=== PATIENT | female | born 1940 | race Caucasian/White ===

== ENCOUNTER → 2017-12-18 | Outpatient (CLI) | payer OTHER, BC ==
[~2017-12-18] MED LIST: AMLO2.5T PO; AMT50 PO; ASPI81TA28 PO; ATOR10TA82 PO; BISO10TA14 PO; CALC500C70 PO; HYDR-5688 PO; MULT-506 PO; OMEG10007 PO; RALO60TA30 PO; TRAMTAB5 PO
--- NOTE | 2017-12-18 15:49 | DIAGNOSTIC IMAGING REPORT ---
CHEST 2 VIEWS ROUTINE CLINICAL HISTORY: PRE OP TESTING, WENT TO [facility], SEND TO [facility] COMPARISON STUDY: No previous studies for comparison. FINDINGS: The bones soft tissues and hemidiaphragms are normal. The cardiomediastinal silhouette is normal. The lungs are clear. The pulmonary vasculature is normal. IMPRESSION: Negative chest. The above report was generated using voice recognition software. It may contain grammatical, syntax or spelling errors. Electronically signed by: Chetan Velazquez M.D. 12/18/2017 3:47 PM Dictated Date/Time: 12/18/2017 3:42 PM
[2017-12-18 15:50] LABS: BASO % 0.1 %; BASO ABS # 0.01 K/uL (0-0.2); EOS % 2.2 %; EOS ABS # 0.17 K/uL (0-0.5); HEMATOCRIT 38.5 % (37-47); HEMOGLOBIN 12.8 g/dL (12.0-16.0); IG# 0.01 K/uL (0.00-0.02); LYMPH % 25.6 %; LYMPH ABS # 2.01 K/uL (1.2-3.4); MEAN CORPUSCULAR HEMOGLOBIN 27.6 pg (25-34); MEAN CORPUSCULAR HGB CONC 33.2 g/dl (32-36); MEAN PLATELET VOLUME 8.8 fL (7.4-10.4); MONO % 8.2 %; MONO ABS # 0.64 K/uL (0.11-0.59); NEUT % 63.8 %; NEUT ABS # 5.01 K/uL (1.4-6.5); PLATELET COUNT 288 K/uL (130-400); RED CELL DISTRIBUTION WIDTH CV 14.6 % (11.5-14.5); RED CELL DISTRIBUTION WIDTH SD 43.9 fL (36.4-46.3); WHITE BLOOD COUNT 7.85 K/uL (4.8-10.8)
[2017-12-18 15:57] LABS: PTT PATIENT 22.7 SECONDS (21.0-31.0)
[2017-12-18 16:23] LABS: ALBUMIN 3.4 gm/dl (3.4-5.0); BLOOD UREA NITROGEN 17 mg/dl (7-18); CALCIUM 8.7 mg/dl (8.5-10.1); CARBON DIOXIDE 29 mmol/L (21-32); CREATININE 0.83 mg/dl (0.60-1.20); GLUCOSE 124 mg/dl (70-99); POTASSIUM 3.7 mmol/L (3.5-5.1); SODIUM 140 mmol/L (136-145)
[2017-12-19 07:25] LABS: HEMOGLOBIN A1C 5.8 % (4.5-5.6)
== END | disposition home or self-care (01) ==
LOC: C.LAB 15:02
PROVIDERS: ATTEND Orthopaedic Surgery
DX: Z01.812 Encounter for preprocedural laboratory examination (principal); Z01.811 Encounter for preprocedural respiratory examination; Z01.810 Encounter for preprocedural cardiovascular examination

== ENCOUNTER 2017-12-23 09:34 | Inpatient (IN) | payer OTHER, BC ==
[2017-12-21 12:50] VITALS: BMI 28.0
[2017-12-23] VITALS (9 sets, daily range): BP systolic 101–149; BP diastolic 63–77; PULSE 76–84; TEMP 36.4–37; O2SAT 92–96; Ht 160 cm; Wt 72.7 kg
[~2017-12-23] VITALS: Ht 160 cm; Wt 72.7 kg
--- NOTE | 2017-12-23 08:02 | History and Physical ---
History & Physical Date December 23, 2017. 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 with valgus alignment bone the bone changes subchondral sclerosis cystic changes marginal osteophytes and sclerotic bone is been no response to conservative therapy History of Present Illness The patient is a 77 year old female with complaints of ongoing right knee pain that is been no response to conservative therapy with severe end-stage DJD valgus alignment [id number] changes she is failed attempts at conservative management including injections anti-inflammatories bracing relative rest Past Medical/Surgical History Patient has history of previous rotator cuff surgery and spine surgery Additional History Hepatic Disease: No Endocrine Disorder: No Kidney Disease: No Hypertension: Yes Heart Disease: Yes Bleeding Tendencies: No Infectious Diseases: No Allergies Coded Allergies: Gabapentin (Verified Allergy, Intermediate, PASSES OUT, 12/22/17) Penicillins (Verified Allergy, Intermediate, SWELL UP AND CAN'T BREATHE, ) Home Medications Scheduled Amitriptyline Hcl (Elavil), 25 MG PO HS Amlodipine (Norvasc), 2.5 MG PO DAILY Aspirin (Aspirin Ec), 81 MG PO DAILY Atorvastatin (Lipitor), 10 MG PO QPM Bisoprolol/Hctz (Ziac 10MG/6.25MG), TAB PO QAM Calcium/Vitamin D (Os-Jose 500 Plus D), 1 TAB PO QPM Fish Oil (Benjamin-3), 1 CAP PO BID Multivitamin (Multivitamin), 1 TAB PO QAM Raloxifene Hcl (Evista), 60 MG PO QAM Scheduled PRN Hydrocodone/Acetaminophen 5MG/325MG ([place] 5MG/325MG), 1 TABLET PO UD PRN for Pain Tramadol/Acetaminophen (Ultracet), 1 TAB PO UD PRN for Pain Physical Examination Skin: warm/dry, no rash Eyes: normal inspection, EOMI, sclerae normal ENT: normal ENT inspection, pharynx normal Head: normocephalic, atraumatic Neck: supple, no adenopathy, trachea midline Respiratory/Chest: lungs clear, normal breath sounds, no respiratory distress Cardiovascular: regular rate, rhythm, no edema, no murmur Abdomen / GI: normal bowel sounds, non tender Back: normal inspection Extremities: normal inspection, normal range of motion, + pertinent finding ( The exam includes pseudo-ligament ligamentous laxity medial joint line pain crepitation range of motion 0-120 moderate effusion crepitation of patellofemoral joint) Neurologic/Psych: no motor/sensory deficits, alert, normal reflexes, oriented x 3 Diagnosis Severe end-stage DJD with valgus alignment bone the bone changes eburnated bone osteophytes sclerosis Plan of Treatment Plans for total knee arthroplasty postoperative pain meds DVT prophylaxis antibiotics as necessary
--- NOTE | 2017-12-23 08:02 | History & Physical Bridge Note ---
H&P Re-Evaluation Bridge Note: I have examined the patient, reviewed the History & Physical and in the interval since the performance of the History & Physical I have noted the following changes of clinical significance: No changes noted
[~2017-12-23 09:34] MED LIST changes: +ACETAMINOPHEN 500 MG TAB PO SCH; +ATROPINE SULFATE 0.1 MG/ML 5ML SYR IV PRN; +BUPIVACAINE 0.25% 30 ML VIAL ONE; +BUPIVACAINE 0.5 % 5 MG/1 ML PF 10ML VIAL ONE; +CEFAZOLIN 1000MG IV PUSH 7.5 ML IV SCH; +CLINDAMYCIN 600 MG/54 ML D5W 54 ML IV SCH; +CeleBREX 200 MG CAP PO SCH; +DEXAMETHASONE 4 MG TAB PO SCH; +EpHEDrine SULFATE INJ 50 MG/ML AMP IV PRN; +FAMOTIDINE 20 MG TAB PO SCH; +FENTANYL CITRATE INJ 50 MCG/1 ML 2 ML VIAL IV PRN; +GABAPENTIN 300 MG CAP PO SCH; +HYDROmorphone INJ 1 MG/ML SYR IV PRN; +HYDROmorphone INJ 2 MG/ML SYR/VIAL IV PRN; +LABETALOL HCL IV 5 MG/ML 20ML IV PRN; +LACTATED RINGER'S 1000ML 1,000 ML IV SCH; +LACTATED RINGER'S 1000ML 500 ML IV SCH; +METOCLOPRAMIDE HCL 10 MG TAB PO SCH; +ONDANSETRON INJ 2 MG/ML 2 ML VIAL IV PRN; +PHENYLEPHRINE 100MCG/ML 5ML SYR IV PRN; +ROPIVACAINE 5MG/ML 30 ML 150 MG, BUPIVACAINE 0.5% MPF INJ 30 ML, EpINEphrine HCL INJ 0.... INFIL SCH; +[UNRECOGNIZED DRUG - REMARK] SCH; +[UNRECOGNIZED DRUG - REMARK] SCH
[2017-12-23] MEDS ORDERED: MIDAZOLAM HCL 1 MG/ML 2ML VIAL ONE (10:45)
[2017-12-23] MEDS ORDERED: FENTANYL CITRATE INJ 50 MCG/1 ML 2 ML VIAL ONE (10:45)
[2017-12-23] MEDS ORDERED: BACITRACIN 50000 UNIT VIAL ONE (11:53)
[2017-12-23] MEDS ORDERED: ORTHO JOINT ANESTHETIC ONE (11:53)
[2017-12-23] MEDS ORDERED: POVIDONE-IODINE OP SOLN 30 ML BTL ONE (11:53)
[2017-12-23] MEDS: TRANEXAMIC ACID INJ 1,000 MG x 2 Bags IV SCH ×4 (12:28→18:08)
--- NOTE | 2017-12-23 13:41 | [facility] Operative Report ---
Operative Report Operative Date December 23, 2017. Pre-Operative Diagnosis Right Knee Severe End-Stage Degenerative Joint Disease Post-Operative Diagnosis Right Knee Severe End-Stage Degenerative Joint Disease Procedure(s) Performed Right Total Knee Arthroplasty utilizing journey to non-block size 3 femur 3 tibia 10 Holly [address] Ackerman Handkerchief Sample Clerk Surgeon(s) POOL Tuttle Estimated Blood Loss 5 ml Findings Severe end-stage tricompartmental degenerative joint disease with high-grade valgus alignment [id number] eburnated bone subchondral cysts marginal osteophytes laterally and medially with a 10 of valgus alignment of the knee Specimens A. Right Knee Bone and Tissue Anesthesia Type MAC Spinal Regional Complication(s) none Disposition Recovery Room / PACU Indications Patient presents after failing attempts at conservative management including physical therapy anti-inflammatories relative rest activity modification cortical steroid injections Visco supplementation she presents with severe valgus alignment painful [id number] knee no response to conservative management for total knee arthroplasty Description of Procedure After proper prepping and draping of the Right lower extremity anterior midline incision was made over the region of the extensor extensor mechanism after meticulous hemostasis was obtained and maintained in subcutaneous tissues a medial parapatellar incision was made The patella was subluxed lateralward the medial lateral gutter were cleaned from any hypertrophic synovitis and scar tissue of the distal femoral block was placed and the distal femoral osteotomy cut was made subsequently the chamfers anterior and posterior osteotomy cuts were made utilizing the 4-in-1 block the tibia was subsequently subluxed anteriorward medial and ateral meniscal remnants were excised in their entirety remnants of the anterior and posterior cruciate ligaments were excised in their entirety excellent exposure of the proximal tibia was obtained the tibial osteotomy guide was placed on the proximal tibial osteotomy cut was made once again the knee was irrigated with copious amounts of sterile saline solution the patella was subsequently everted lateralward thickened scar tissue around the patella was removed the patella was subsequently cut utilizing a freehand technique and was drilled prepared for final preparation and placement of patella socially flexion-extension gaps were checked and the equal and symmetric trials were placed to the appropriate femoral and tibial trials with poly-spacer being placed for equal flexion and extension gaps and full range of motion including extension to 0 and flexion to 140 the trial components after having been taken to recovery range of motion was subsequently removed meticulous hemostasis was obtained and maintained subsequently a knee block injection of joint cocktail including ropivacaine 0.5% 150 mg. Bupivacaine 0.5 % epinephrine 1-200,030 mL's toradol 30 mg dexamethasone 4 mg ketamine 10 mg clonidine 100 micrograms normal saline solution 30 mg was infiltrated into the soft tissues of the posterior knee medial lateral gutters and periosteal synovium special attention was paid to protect neurovascular structures at all times subsequently trial components having been removed the knee was irrigated with sterile saline solution. debris was removed the proximal tibia was subsequently prepared and was made ready for the placement of the tibial component tibial component was also cemented and tamped into position the femoral component was subsequently placed and cemented in the position the patellar component was subsequently cemented in position because hemostasis once again obtained and maintained wound having been thoroughly irrigated with debridement and debridement lavage was performed as well as a medial parapatellar incision closed with #1 Vicryl in interrupted fashion subcutaneous was closed with #2 Vicryl skin was closed with skin clips. PA-C was necessary for prepping and drapping as well as wound closure of deep fascia Sub cutaneous tissue and skin and was necessary for the case. A sterile compressive dressing was placed patient was taken to recovery in stable condition of report dictated by Tyron I attest to the content of the Intraoperative Record and any orders documented therein. Any exceptions are noted below. I attest to the content of the Intraoperative Record and any orders documented therein. Any exceptions are noted below.
[2017-12-23] MEDS ORDERED: PROPOFOL IV EMULSION 10 MG/ML 20 ML VIAL ONE (14:02)
[2017-12-23] MEDS ORDERED: PHENYLEPHRINE 100MCG/ML 5ML SYR ONE (14:02)
[2017-12-23] MEDS ORDERED: SOD PHOSPHATE/SOD BIPHOSPHATE ENEMA 132 ML BTL PR PRN (14:30)
[2017-12-23] MEDS ORDERED: ALUMINUM/MAGNESIUM/SIMETH (MAALOX MAX) 30 ML UDC PO PRN (14:30)
[2017-12-23] MEDS ORDERED: MoRPHine SULFATE 4 MG/ML 1 ML CARP\\VIAL IV PRN (14:30)
[2017-12-23] MEDS ORDERED: ZOLPIDEM TARTRATE 5 MG TAB PO PRN (14:30)
[2017-12-23] MEDS ORDERED: BISACODYL 10 MG SUPP PR PRN (14:30)
[2017-12-23] MEDS ORDERED: ONDANSETRON INJ 2 MG/ML 2 ML VIAL IV PRN (14:30)
[2017-12-23] MEDS ORDERED: MAGNESIUM HYDROXIDE SUSP 30 ML UDC PO PRN (14:30)
[2017-12-23] MEDS ORDERED: KETOROLAC TROMETHAMINE 15 MG/ML VIAL IV. PRN (14:30)
[2017-12-23] MEDS ORDERED: TRAMADOL HCL 50 MG TAB PO PRN (14:30)
[2017-12-23] MEDS ORDERED: MoRPHine SULFATE 10 MG/ML CARP/VIAL IV PRN (14:45)
--- NOTE | 2017-12-23 14:55 | DIAGNOSTIC IMAGING REPORT ---
R KNEE 1 OR 2 VIEWS ROUTINE CLINICAL HISTORY: Postoperative evaluation. COMPARISON: None FINDINGS: Alignment of the total right knee arthroplasty is anatomic. There is no fracture or unexpected radiopaque foreign body. Surgical drains are in place. IMPRESSION: Expected findings following total right knee arthroplasty. Electronically signed by: Ernesto Campos M.D. 12/23/2017 2:53 PM Dictated Date/Time: 12/23/2017 2:53 PM
--- NOTE | 2017-12-23 16:42 | Anesthesiology Progress Note ---
Anesthesia Post Op Note Date & Time December 23, 2017 at 16:42 Vital Signs Pain Intensity: 0 Vital Signs Past 12 Hours Date Time Temp Pulse Resp B/P (MAP) Pulse Ox O2 Delivery O2 Flow Rate FiO2 12/23/17 16:03 84 19 5/18 16:03 83 19 95 5//18 16:01 98/52 5//18 15:58 86 31 94 5/2/18 15:58 83 31 5/18 15:56 102/53 5/18 15:53 86 21 518 15:53 85 21 94 5/2/18 15:51 105/57 5//18 15:48 86 22 5/18 15:48 92 22 95 //18 15:46 103/60 5/18 15:43 86 18 95 //18 15:43 83 18 /18 15:41 100/54 5/18 15:38 85 19 /18 15:38 85 19 94 18 15:36 105/61 5/18 15:33 86 17 96 5//18 15:33 86 17 5/18 15:31 109/59 5//18 15:28 86 21 5/18 15:28 86 21 94 //18 15:26 113/64 5/18 15:23 84 16 5/18 15:23 83 16 95 //18 15:21 105/57 5/18 15:18 87 18 95 18 15:18 82 18 5/18 15:16 107/62 5//18 15:14 36.9 88 22 105/57 95 Nasal Cannula 2 12/23/17 15:13 84 14 95 5//18 15:13 79 14 18 15:12 83 16 96 5//18 15:12 83 16 5//18 15:11 92/61 5/2/18 15:07 84 17 95 5/2/18 15:07 83 17 5/2/18 15:06 107/60 5//18 15:02 81 17 5//18 15:02 82 17 96 5/2/18 15:01 105/57 5/2/18 14:57 83 16 100 5/2/18 14:57 82 16 5/2/18 14:56 106/60 5/2/18 14:52 81 15 5/2/18 14:52 82 15 100 5/2/18 14:51 108/62 5/2/18 14:47 82 17 100 5/2/18 14:47 81 17 5/2/18 14:46 105/62 5/2/18 14:42 87 23 100 5//18 14:42 80 23 5/2/18 14:41 103/59 5/2/18 14:41 103/59 5/2/18 14:40 83 16 //18 14:40 83 16 99 /2/18 14:40 83 16 99 //18 14:40 83 16 //18 14:36 95/61 5/2/18 14:36 95/61 //18 14:35 83 15 99 //18 14:35 82 15 //18 14:35 82 15 18 14:35 83 15 99 /2/18 14:31 97/51 5/2/18 14:31 97/51 5/2/18 14:30 85 14 100 //18 14:30 84 14 18 14:30 85 14 100 //18 14:30 84 14 18 14:26 94/51 5/2/18 14:26 94/51 5/2/18 14:25 86 23 100 //18 14:25 86 23 100 //18 14:25 86 23 //18 14:25 86 23 /2/18 14:20 82 25 5/2/18 14:20 83 25 102/59 98 5/2/18 14:20 36.0 81 16 102/59 (67) 98 Oxymask 10 18 14:20 83 25 102/59 98 5/2/18 14:20 82 25 5/2/18 10:20 36.9 76 20 149/77 95 Room Air Notes Mental Status: alert / awake / arousable, participated in evaluation Pt Amnestic to Procedure: Yes Nausea / Vomiting: adequately controlled Pain: adequately controlled Airway Patency, RR, SpO2: stable & adequate BP & HR: stable & adequate Hydration State: stable & adequate Anesthetic Complications: no major complications apparent
[2017-12-23] MEDS ORDERED: NURSING VERBAL MED ORDER ONE (17:45)
[2017-12-23] MEDS: FERROUS GLUCONATE 324 MG TAB PO SCH (18:41)
[2017-12-23] MEDS: CLINDAMYCIN IV 600 MG in DEXTROSE 5% 50ML 50 ML IV SCH (20:51)
[2017-12-23] MEDS: CALCIUM 600MG + VIT D 400 IU TAB PO SCH (20:52)
[2017-12-23] MEDS: DOCUSATE SODIUM 100 MG CAP PO SCH (20:52)
[2017-12-23] MEDS: SENNA 8.6 MG TAB PO SCH (20:53)
[2017-12-23] MEDS: AMITRIPTYLINE HCL 25 MG TAB PO SCH (20:54)
[2017-12-23] MEDS: ASPIRIN 81 MG ECTAB PO SCH (20:54)
[2017-12-23] MEDS: ATORVASTATIN 10 MG TAB PO SCH (20:54)
[2017-12-23] MEDS: ACETAMINOPHEN 500 MG TAB PO SCH (21:45)
[2017-12-23] MEDS: D5W AND 1/2NSS + 20MEQ KCL 1,000 ML IV SCH (22:44)
[2017-12-24] VITALS (7 sets, daily range): BP systolic 122–153; BP diastolic 78–80; PULSE 80–98; TEMP 36.5–36.7; O2SAT 94–96
[2017-12-24] MEDS: OXYCODONE HCL IR 5 MG TAB (IMMEDIATE RELEASE) PO PRN ×2 (03:17→19:45)
[2017-12-24] MEDS: CLINDAMYCIN IV 600 MG in DEXTROSE 5% 50ML 50 ML IV SCH (04:22)
[2017-12-24] MEDS: ACETAMINOPHEN 500 MG TAB PO SCH ×3 (05:47→21:18)
--- NOTE | 2017-12-24 07:54 | Orthopedic Progress Note ---
Orthopedic Progress Note Date of Service December 24, 2017. Subjective Post OP Day: 1 Reports: feeling well Objective N/V intact, dressing C/D/I (Hemovac in place), toes mobile Date Time Temp Pulse Resp B/P (MAP) Pulse Ox O2 Delivery O2 Flow Rate FiO2 12/24/17 03:30 36.5 98 14 127/78 (94) 94 Room Air 12/23/17 23:50 93 Room Air 2.0 12/23/17 23:19 36.5 80 16 124/68 (86) 93 Room Air 12/23/17 19:51 36.4 83 16 122/70 (87) 93 Room Air 12/23/17 18:46 36.4 81 17 102/63 (76) 93 Room Air 12/23/17 17:45 36.6 81 18 102/66 (78) 96 Room Air 12/23/17 17:13 36.4 80 16 101/64 (76) 96 Nasal Cannula 2.0 12/23/17 16:45 Nasal Cannula 2.0 12/23/17 16:45 Nasal Cannula 2.0 12/23/17 16:45 37.0 84 16 103/67 (79) 92 Nasal Cannula 2.0 12/23/17 16:03 84 19 12/23/17 16:03 83 19 95 12/23/17 16:01 98/52 12/23/17 15:58 86 31 94 12/23/17 15:58 83 31 12/23/17 15:56 102/53 12/23/17 15:53 86 21 12/23/17 15:53 85 21 94 12/23/17 15:51 105/57 12/23/17 15:48 86 22 12/23/17 15:48 92 22 95 12/23/17 15:46 103/60 12/23/17 15:43 86 18 95 12/23/17 15:43 83 18 12/23/17 15:41 100/54 12/23/17 15:38 85 19 12/23/17 15:38 85 19 94 12/23/17 15:36 105/61 18 15:33 86 17 96 12/23/17 15:33 86 17 12/23/17 15:31 109/59 12/23/17 15:28 86 21 5/2/18 15:28 86 21 94 5/2/18 15:26 113/64 5/2/18 15:23 84 16 5/2/18 15:23 83 16 95 5/2/18 15:21 105/57 5/2/18 15:18 87 18 95 5/2/18 15:18 82 18 5/2/18 15:16 107/62 5/2/18 15:14 36.9 88 22 105/57 95 Nasal Cannula 2 5/2/18 15:13 84 14 95 5/2/18 15:13 79 14 5/2/18 15:12 83 16 96 5/2/18 15:12 83 16 5/2/18 15:11 92/61 5/2/18 15:07 84 17 95 5/2/18 15:07 83 17 5/2/18 15:06 107/60 5/2/18 15:02 81 17 5/2/18 15:02 82 17 96 5/2/18 15:01 105/57 5/2/18 14:57 83 16 100 5/2/18 14:57 82 16 5/2/18 14:56 106/60 5/2/18 14:52 81 15 5/2/18 14:52 82 15 100 5/2/18 14:51 108/62 5/2/18 14:47 82 17 100 5/2/18 14:47 81 17 5/2/18 14:46 105/62 5/2/18 14:42 87 23 100 5/2/18 14:42 80 23 5/2/18 14:41 103/59 5/2/18 14:41 103/59 5/2/18 14:40 83 16 5/2/18 14:40 83 16 99 5/2/18 14:40 83 16 99 5/2/18 14:40 83 16 5/2/18 14:36 95/61 5/2/18 14:36 95/61 5/2/18 14:35 83 15 99 5/2/18 14:35 82 15 5/2/18 14:35 82 15 5/2/18 14:35 83 15 99 5/2/18 14:31 97/51 5/2/18 14:31 97/51 5/2/18 14:30 85 14 100 5/2/18 14:30 84 14 5/2/18 14:30 85 14 100 12/23/17 14:30 84 14 12/23/17 14:26 94/51 12/23/17 14:26 94/51 12/23/17 14:25 86 23 100 12/23/17 14:25 86 23 100 12/23/17 14:25 86 23 12/23/17 14:25 86 23 12/23/17 14:20 82 25 12/23/17 14:20 83 25 102/59 98 12/23/17 14:20 36.0 81 16 102/59 (67) 98 Oxymask 10 12/23/17 14:20 83 25 102/59 98 12/23/17 14:20 82 25 12/23/17 10:20 36.9 76 20 149/77 95 Room Air Laboratory Results 24 Hours: Test 12/24/17 04:44 Additional Notes: Labs pending Assessment & Plan Assessment: 77 yo female stable POD #1 s/p right TKA Plan: 1. Med management 2. DVT prophylaxis- ASA, SCDs 3. PT/OT 4. D/C planning- home w/ HH
[2017-12-24] MEDS: DOCUSATE SODIUM 100 MG CAP PO SCH ×3 (08:45→21:38)
[2017-12-24] MEDS: D5W AND 1/2NSS + 20MEQ KCL 1,000 ML IV SCH (08:45)
[2017-12-24] MEDS: RALOXIFENE 60 MG TAB PO SCH (08:46)
[2017-12-24] MEDS: MULTIVITAMIN TAB PO SCH (08:47)
[2017-12-24] MEDS: PANTOprazole SOD 40 MG TAB PO SCH (08:47)
[2017-12-24] MEDS: FERROUS GLUCONATE 324 MG TAB PO SCH ×3 (08:47→17:56)
[2017-12-24] MEDS: AMLODIPINE BESYLATE 5 MG TAB PO SCH (08:47)
[2017-12-24] MEDS: ASPIRIN 81 MG ECTAB PO SCH ×2 (08:48→21:16)
[2017-12-24 09:08] LABS: HEMATOCRIT 34.1 % (37-47); HEMOGLOBIN 11.5 g/dL (12.0-16.0); MEAN CELL VOLUME 83.6 fL (80-100); MEAN CORPUSCULAR HEMOGLOBIN 28.2 pg (25-34); MEAN CORPUSCULAR HGB CONC 33.7 g/dl (32-36); MEAN PLATELET VOLUME 8.4 fL (7.4-10.4); PLATELET COUNT 305 K/uL (130-400); RED CELL DISTRIBUTION WIDTH SD 43.1 fL (36.4-46.3); WHITE BLOOD COUNT 9.81 K/uL (4.8-10.8)
[2017-12-24 09:27] LABS: CALCIUM 8.5 mg/dl (8.5-10.1); CREATININE 0.78 mg/dl (0.60-1.20); POTASSIUM 4.1 mmol/L (3.5-5.1)
--- NOTE | 2017-12-24 12:40 | Discharge Instructions ---
Discharge Instructions Date of Service December 24, 2017. Admission Reason for Admission: Right Knee Osteoarthritis Discharge Discharge Diagnosis / Problem: Right total knee replacement Discharge Goals Goal(s): Decrease discomfort, Improve function, Increase independence Activity Recommendations Activity Limitations: as noted below Weightbearing Status: Right weightbearing (as tolerated) . Instructions / Follow-Up Instructions / Follow-Up ACTIVITY RECOMMENDATIONS: SELF CARE INSTRUCTIONS AFTER TOTAL KNEE REPLACEMENT A. You may need to continue a physical therapy program after discharge from the hospital. There are several options available to you. Your doctor will assist you in selecting the best one for you. 1. An out-patient facility 2 to 3 times a week for therapy or home therapy. 2. Continue working on all exercises taught to you in the hospital. Your goals should be to increase bending of your knee to 90 degrees and beyond and to fully straighten your knee. B. You may progress at your own pace from walking with a walker or crutches to a cane; then to no assistive devices. C. Make walking a part of your daily routine. Be up as much as comfortable with rest periods throughout the day. Rest with leg elevation is very important. Use the ice wrap frequently for the first 3-4 weeks. D. There are no restrictions on activities. 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 E. Wear the long elastic stockings (BEN hose) 20 hours a day for 2 weeks after surgery. They can be removed several times a day for laundering and for a bath. F. You may shower, no tub baths until cleared by your doctor. SPECIAL CARE INSTRUCTIONS: VERY IMPORTANT TO READ AND REVIEW A. There are a few signs you need to watch for after you are home. Call [facility] if you notice any of the followin. Increased severe knee pain. Some pain is expected especially when you exercise. 2. Increased swelling in your leg or knee; pain or swelling of the calf muscle in either lower leg. 3. Any fluid drainage from the incision. 4. Shortness of breath or chest pain. B. Please call [facility] at if you have any concerns or questions about your operation or recovery. The doctor or his nurse will return your call promptly. C. You must take antibiotics before dental work, bladder, bowel or other surgery. Your doctor will provide you with a permanent care to carry describing this precaution. IMPORTANT: * REMEMBER TO TAKE ASPIRIN, 81 MG, TWICE DAILY FOR 4 WEEKS UNLESS OTHERWISE DIRECTED. THIS IS YOUR BLOOD THINNER. * HIGH RISK PATIENTS MAY BE PRESCRIBED A STRONGER BLOOD THINNER. THIS WILL BE PROVIDED AT DISCHARGE. * CALL IF INCREASED PAIN, REDNESS, DRAINAGE OR FEVER GREATER THAT 101. * WEAR BEN HOSE 20 HOURS PER DAY FOR 2 WEEKS. * DERMABOND Prineo- This is a mesh tape dressing that is covered with glue. It should remain in place until the incision is properly healed, usually 10-14 days. This dressing is designed to naturally slough off. You may trim the excess mesh tape as it peels off. Incision may be briefly wet in a shower. Dry immediately by blotting with a clean, dry towel. Do not bath or swim until instructed by your doctor. Do not scratch, rub, or pick at the dressing. Do not apply any topical ointments or lotions until dressing is completely removed and/or instructed by your doctor. There may be a small piece of suture material at one end of your incision. Do not pull or trim this. If it is bothersome or catching on clothing, you may cover it with a band-aid. FOLLOW UP VISIT: If appointment is not already scheduled: Please call [facility] to make a follow-up appointment for 2 weeks after your surgery at . Current Hospital Diet Patient's current hospital diet: Regular Diet Discharge Diet Recommended Diet: Regular Diet Procedures Procedures Performed: Right Total Knee Arthroplasty utilizing journey to non-block size 3 femur 3 tibia 10 Holly 29 oval patella Pending Studies Studies pending at discharge: no Laboratory Results Hemoglobin A1c Test 12/18/17 15:22 Range/Units Estimated Average Glucose 120 mg/dl Hemoglobin A1c 5.8 H 4.5-5.6 % Medical Emergencies . Who to Call and When: Medical Emergencies: If at any time you feel your situation is an emergency, please call 911 immediately. . Non-Emergent Contact Non-Emergency issues call your: Primary Care Provider, Surgeon . "Provider Documentation" section prepared by Chetan Peres. . [place] Drug Monitoring Program Search Results: patient reviewed within database, no issues identified
[2017-12-24] MEDS: SENNA 8.6 MG TAB PO SCH ×2 (21:00→21:38)
[2017-12-24] MEDS: CeleBREX 200 MG CAP PO SCH (21:17)
[2017-12-24] MEDS: ATORVASTATIN 10 MG TAB PO SCH (21:37)
[2017-12-24] MEDS: AMITRIPTYLINE HCL 25 MG TAB PO SCH (21:37)
[2017-12-24] MEDS: CALCIUM 600MG + VIT D 400 IU TAB PO SCH (21:38)
[2017-12-25] MEDS: OXYCODONE HCL IR 5 MG TAB (IMMEDIATE RELEASE) PO PRN (00:56)
[2017-12-25] MEDS: ACETAMINOPHEN 500 MG TAB PO SCH (06:15)
--- NOTE | 2017-12-25 07:00 | Orthopedic Progress Note ---
Orthopedic Progress Note Date of Service December 25, 2017. Subjective Post OP Day: 2 Reports: feeling well, pain controlled w PO medications, Denies: complaints, chest pain, SOB, nausea / vomiting, light headedness, calf pain Objective calves soft nontender, N/V intact, capillary refill less than 2 sec., incision C /D/I, A&O x3, toes mobile Date Time Temp Pulse Resp B/P (MAP) Pulse Ox O2 Delivery O2 Flow Rate FiO2 12/24/17 23:21 36.6 87 16 153/79 (103) 95 Room Air 12/24/17 19:41 Room Air 12/24/17 12:19 36.7 80 15 128/78 (95) 96 Room Air 12/24/17 08:33 96 Room Air 12/24/17 08:10 36.5 80 16 122/80 (94) 96 12/24/17 07:55 96 Room Air Laboratory Results 24 Hours: Test 12/24/17 07:54 Hematocrit 34.1 % Hemoglobin 11.5 g/dL Prothromb Time International Ratio 1.0 Prothrombin Time 10.7 SECONDS Assessment & Plan Assessment: 77 yo female stable POD #2 s/p right TKA Plan: 1. Med management 2. DVT prophylaxis- ASA, SCDs 3. PT/OT 4. D/C planning- home w/ HH Discharge Planning Discharge Planning: home with home health DVT Prophylaxis: TEDs, SCDs, ASA Therapy: Physical Therapy
[2017-12-25] MEDS ORDERED: ONDA-170 PO (07:06)
[2017-12-25] MEDS ORDERED: ACET-24 PO (07:06)
[2017-12-25] MEDS ORDERED: CLC100 PO (07:06)
[2017-12-25] MEDS ORDERED: RXC5 PO (07:06)
[2017-12-25] MEDS ORDERED: ASPI-320 PO (07:06)
[2017-12-25] MEDS ORDERED: CLB200 PO (07:06)
[2017-12-25 07:25] VITALS: BP 127/76; PULSE 83; TEMP 36.6; O2SAT 96
[2017-12-25 07:50] VITALS: O2SAT 95
[2017-12-25 07:53] VITALS: BP 153/79; PULSE 87; TEMP 36.6; O2SAT 95
--- NOTE | 2017-12-25 08:31 | Discharge Summary ---
Orthopedic Discharge Summary Admission Date/Reason December 23, 2017 at 09:55 Right Knee Osteoarthritis. Discharge Date/Disposition December 25, 2017 Home with services Diagnosis Principal Diagnosis: right total knee replacement Procedure(s) Performed Right Total Knee Arthroplasty utilizing journey to non-block size 3 femur 3 tibia 10 Holly 29 oval patella Consultations NONE Medication Reconciliation New Medications: Ondansetron Hcl (Zofran) 8 Mg Tab 8 MG PO Q8 PRN for Nausea, #20 TAB Acetaminophen (Sb Non-Aspirin Extra Stre) 500 Mg Tab 1000 MG PO Q8, #63 TAB Aspirin (Aspirin EC Low Dose) 81 Mg Ectab 81 MG PO BID for 30 Days, #60 TAB Celecoxib (Celebrex) 200 Mg Cap 200 MG PO BID for 30 Days, #60 CAP Docusate Sodium (Docusate Sodium) 100 Mg Cap 100 MG PO BID for 10 Days, #20 CAP Oxycodone HCl (Oxycodone HCl) 5 Mg Tab 5-10 MG PO Q4H PRN for Pain, #60 TAB Continued Medications: Amitriptyline Hcl (Elavil) 50 Mg Tab 25 MG PO HS, TAB Amlodipine (Norvasc) 2.5 Mg Tab 2.5 MG PO DAILY, TAB PT NOT SURE WHAT TIME SHE TAKES THIS MEDICATION Atorvastatin (Lipitor) 10 Mg Tab 10 MG PO QPM, TAB Bisoprolol/Hctz (Ziac 10MG/6.25MG) Tab TAB PO QAM, TAB PT REPORTS DOSE IS 5/6.25 Calcium/Vitamin D (Os-Jose 500 Plus D) Tab 1 TAB PO QPM, TAB Multivitamin (Multivitamin) Tab 1 TAB PO QAM, TAB Raloxifene Hcl (Evista) 60 Mg Tab 60 MG PO QAM, TAB PT INSTRUCTED TO CONTACT PRESCRIBING PHYSICIAN FOR PRE OP INSTRUCTION REGARDING THIS MED, PT VOICES UNDERSTANDING. Discontinued Medications: Aspirin (Aspirin Ec) 81 Mg Tab 81 MG PO DAILY PT LAST DOSE WAS 12/17/17 - INSTRUCTED TO STOP PER SURGEON OFFICE Fish Oil ([place]-3) 1 Ea Cap 1 CAP PO BID, CAP PT REPORTS HAS NOT STOPPED THIS MED, INSTRUCTED TO STOP TODAY. PATIENT VOICES UNDERSTANDING. Hydrocodone/Acetaminophen 5MG/325MG ([place] 5MG/325MG) Tab 1 TABLET PO UD PRN for Pain, TAB PRN PAIN Admission Physical Exam As per Admitting History & Physical. Hospital Course Patient was a same day admission after undergoing a successful right TKA. she tolerated the procedure well. Post-operatively, his activity was progressed and well tolerated. Please refer to daily progress notes and PT notes for complete details. After exam on 12/25/17, patient felt to be stable for discharge home with home health PT. Patient will f/u in the office in 2 weeks for further evaluation including x-rays and incision check, sooner if having any issues or concerns. Below are pertinent labs/studies during their hospital stay: Last Vital Signs Documentation Date Time Temp Pulse Resp B/P (MAP) Pulse Ox O2 Delivery O2 Flow Rate FiO2 12/25/17 07:53 36.6 87 16 95 Room Air 12/24/17 23:21 153/79 (103) 12/23/17 23:50 2.0 Last Resulted CBC 12/24/17 07:54 Last Resulted BMP 12/24/17 07:54 Discharge Instructions ACTIVITY RECOMMENDATIONS: SELF CARE INSTRUCTIONS AFTER TOTAL KNEE REPLACEMENT A. You may need to continue a physical therapy program after discharge from the hospital. There are several options available to you. Your doctor will assist you in selecting the best one for you. 1. An out-patient facility 2 to 3 times a week for therapy or home therapy. 2. Continue working on all exercises taught to you in the hospital. Your goals should be to increase bending of your knee to 90 degrees and beyond and to fully straighten your knee. B. You may progress at your own pace from walking with a walker or crutches to a cane; then to no assistive devices. C. Make walking a part of your daily routine. Be up as much as comfortable with rest periods throughout the day. Rest with leg elevation is very important. Use the ice wrap frequently for the first 3-4 weeks. D. There are no restrictions on activities. You may ride in a car, shop, participate in senior loan processor and all social activities. E. Wear the long elastic stockings (BEN hose) 20 hours a day for 2 weeks after surgery. They can be removed several times a day for laundering and for a bath. F. You may shower, no tub baths until cleared by your doctor. SPECIAL CARE INSTRUCTIONS: VERY IMPORTANT TO READ AND REVIEW A. There are a few signs you need to watch for after you are home. Call [facility] if you notice any of the followin. Increased severe knee pain. Some pain is expected especially when you exercise. 2. Increased swelling in your leg or knee; pain or swelling of the calf muscle in either lower leg. 3. Any fluid drainage from the incision. 4. Shortness of breath or chest pain. B. Please call [facility] at if you have any concerns or questions about your operation or recovery. The doctor or his nurse will return your call promptly. C. You must take antibiotics before dental work, bladder, bowel or other surgery. Your doctor will provide you with a permanent care to carry describing this precaution. IMPORTANT: * REMEMBER TO TAKE ASPIRIN, 81 MG, TWICE DAILY FOR 4 WEEKS UNLESS OTHERWISE DIRECTED. THIS IS YOUR BLOOD THINNER. * HIGH RISK PATIENTS MAY BE PRESCRIBED A STRONGER BLOOD THINNER. THIS WILL BE PROVIDED AT DISCHARGE. * CALL IF INCREASED PAIN, REDNESS, DRAINAGE OR FEVER GREATER THAT 101. * WEAR BEN HOSE 20 HOURS PER DAY FOR 2 WEEKS. * DERMABOND Prineo- This is a mesh tape dressing that is covered with glue. It should remain in place until the incision is properly healed, usually 10-14 days. This dressing is designed to naturally slough off. You may trim the excess mesh tape as it peels off. Incision may be briefly wet in a shower. Dry immediately by blotting with a clean, dry towel. Do not bath or swim until instructed by your doctor. Do not scratch, rub, or pick at the dressing. Do not apply any topical ointments or lotions until dressing is completely removed and/or instructed by your doctor. There may be a small piece of suture material at one end of your incision. Do not pull or trim this. If it is bothersome or catching on clothing, you may cover it with a band-aid. FOLLOW UP VISIT: If appointment is not already scheduled: Please call [facility] to make a follow-up appointment for 2 weeks after your surgery at .
[2017-12-25] MEDS: DOCUSATE SODIUM 100 MG CAP PO SCH (09:00)
[2017-12-25] MEDS: FERROUS GLUCONATE 324 MG TAB PO SCH ×2 (09:13→12:20)
[2017-12-25] MEDS: CeleBREX 200 MG CAP PO SCH (09:13)
[2017-12-25] MEDS: ASPIRIN 81 MG ECTAB PO SCH (09:14)
[2017-12-25] MEDS: PANTOprazole SOD 40 MG TAB PO SCH (09:14)
[2017-12-25] MEDS: MULTIVITAMIN TAB PO SCH (09:14)
[2017-12-25] MEDS: RALOXIFENE 60 MG TAB PO SCH (09:15)
[2017-12-25] MEDS: AMLODIPINE BESYLATE 5 MG TAB PO SCH (09:15)
== END 2017-12-25 13:28 | disposition home health service (06) | DRG 470 ==
LOC: C.ACU 09:34 → C.3E 09:55 → ENRESERV 15:17
PROVIDERS: ADMIT Orthopaedic Surgery; ATTEND Orthopaedic Surgery
PROC: 0SRC0J9 Replacement of Right Knee Joint with Synthetic Substitute, Cemented, Open Approach (ICD-10-PCS; principal; 2017-12-23 12:45)
DX: M17.11 Unilateral primary osteoarthritis, right knee (principal); Z79.82 Long term (current) use of aspirin; Z79.899 Other long term (current) drug therapy; Z88.0 Allergy status to penicillin; Z88.8 Allergy status to other drugs, medicaments and biological substances